=== PATIENT | female | born 1930 | race Asian ===

== ENCOUNTER 2017-12-11 09:30 | Inpatient (IN) | payer OTHER ==
--- NOTE | 2017-12-11 10:37 | PDOC ---
History of Present Illness - General Chief Complaint: Revisit,Radiology Variance Stated Complaint: abnormal U/S AND BLOOD WORK,SEND BY PMD Time Seen by Provider: 12/11/17 09:36 - History of Present Illness Initial Comments: 12/11/17 10:34 87 F with h/o HTN, HLD presenting to ED with several days of jaundice. Pt denies any pain, denies F/C. States that she noticed her eyes had become yellow. Pt was seen by Dr. Justice and had outpt labs drawn that showed an elevated Tbili. Pt subsequently had US and CT that demonstrated possible hepatic mass. No evidence of pancreatic mass or gallbladder pathology was noted. Pt states she otherwise feels well. No complaints at this time. Pt sent in by Dr. Justice for admission and MRCP. Past History - Past Medical History Allergies/Adverse Reactions: Allergies Allergy/AdvReac Type Severity Reaction Status Date / Time oxycodone [Oxycodone] Allergy Intermediate Itching Verified 12/11/17 09:40 hydromorphone HCl Allergy Verified 12/11/17 09:40 [From Dilaudid] HAIR DYE Allergy Uncoded 06/01/13 17:10 Anemia: No Asthma: No Cancer: No Cardiac Disorders: No CVA: No COPD: No CHF: No Dementia: No Diabetes: No GI Disorders: No Disorders: No HTN: Yes Hypercholesterolemia: Yes Liver Disease: No Seizures: No Thyroid Disease: No - Surgical History Abdominal Surgery: No Appendectomy: No Cardiac Surgery: No Cholecystectomy: No Lung Surgery: No Neurologic Surgery: No Orthopedic Surgery: No - Suicide/Smoking/Psychosocial Hx Smoking Status: Yes Smoking History: Former smoker Have you smoked in the past 12 months: No Number of Cigarettes Smoked Daily: 1 If you are a former smoker, when did you quit?: 1912 Information on smoking cessation initiated: No Hx Alcohol Use: No Drug/Substance Use Hx: No Substance Use Type: None Hx Substance Use Treatment: No Review of Systems - Review of Systems Comments:: 12/11/17 10:36 "GENERAL/CONSTITUTIONAL: No fever or chills. No weakness. HEAD, EYES, EARS, NOSE AND THROAT: No change in vision. No ear pain or discharge. No sore throat. CARDIOVASCULAR: No chest pain or shortness of breath. RESPIRATORY: No cough, wheezing, or hemoptysis. GASTROINTESTINAL: No nausea, vomiting, diarrhea or constipation. GENITOURINARY: No dysuria, frequency, or change in urination. MUSCULOSKELETAL: No joint or muscle swelling or pain. No neck or back pain. SKIN: + jaundice NEUROLOGIC: No headache, vertigo, loss of consciousness, or change in strength/ sensation. ENDOCRINE: No increased thirst. No abnormal weight change. HEMATOLOGIC/LYMPHATIC: No anemia, easy bleeding, or history of blood clots. ALLERGIC/IMMUNOLOGIC: No hives or skin allergy. " *Physical Exam - Vital Signs Last Vital Signs Temp Pulse Resp BP Pulse Ox 98.9 F 77 16 171/60 100 12/11/17 09:31 12/11/17 09:31 12/11/17 09:31 12/11/17 09:31 12/11/17 09:31 - Physical Exam Comments: 12/11/17 10:36 "GENERAL: Awake, alert, and fully oriented, in no acute distress HEAD: No signs of trauma EYES: PERRLA, EOMI, + scleral icterus ENT: Auricles normal inspection, hearing grossly normal, nares patent, oropharynx clear without exudates. Moist mucosa NECK: Nontender, no stepoffs, Normal ROM, supple, no lymphadenopathy, JVD, or masses LUNGS: Breath sounds equal, clear to auscultation bilaterally. No wheezes, and no crackles HEART: Regular rate and rhythm, normal S1 and S2, no murmurs, rubs or gallops ABDOMEN: Soft, nontender, normoactive bowel sounds. No guarding, no rebound. No masses EXTREMITIES: Normal range of motion, no edema. No clubbing or cyanosis. No cords, erythema, or tenderness NEUROLOGICAL: Cranial nerves II through XII intact. 5/5 strength and sensation in all extremities, Normal speech, normal gait, normal cerebellar function SKIN: +Jaundice, Warm, Dry, normal turgor, no rashes or lesions noted. " ED Treatment Course - LABORATORY CBC & Chemistry Diagram: 12/13/17 08:30 12/13/17 06:00 - RADIOLOGY Radiology Studies Ordered: Category Date Time Status ABDOMEN MRI WITH CONTRAST/MRCP [MRI] Stat MRI 12/11/17 10:21 Ordered Medical Decision Making - Medical Decision Making 12/11/17 10:37 87 F with painless jaundice, found to have elevated bilis. CT and US with ? mass in liver. No infectious symptoms or abdominal pain to suggest cholangitis. - Repeat labs - MRCP - GI consult - Admit 12/11/17 15:[address] Young GI advanced solutions architect, who recommends MRCP and giving vitamin K 2mg IM, does not believe pt will need transfer at this time for ERCP. Pt admitted to hospitalist *DC/Admit/Observation/Transfer Diagnosis at time of Disposition: Elevated bilirubin - Discharge Dispostion Condition at time of disposition: Fair Admit: Yes - Referrals - Patient Instructions - Post Discharge Activity - Attestations Physician Attestion: 12/11/17 12:16 I, Dr. Bi Finney MD, attest that this document has been prepared under my direction and personally reviewed by me in its entirety. I further attest, that it accurately reflects all work, treatment, procedures and medical decision -making performed by me.
[2017-12-11 10:44] LABS: BASO % 2.7 % (0-2.0); EOS % 0.8 % (0-4.5); HEMATOCRIT 33.8 % (32.4-45.2); HEMOGLOBIN 11.4 GM/dl (10.7-15.3); LYMPH % 19.8 % (8-40); MCH 31.7 pg (25.7-33.7); MCHC 33.9 g/dl (32.0-36.0); MEAN CELL VOLUME 93.6 fl (80-96); MEAN PLT VOLUME 8.6 fl (7.5-11.1); MONO % 6.9 % (3.8-10.2); NEUT % 69.8 % (42.8-82.8); PLATELET COUNT 454 K/MM3 (134-434); RBC 3.61 M/mm3 (3.60-5.2); RDW 16.6 % (11.6-15.6); WHITE BLOOD COUNT 7.6 K/mm3 (4.0-10.8)
[2017-12-11 11:00] LABS: ALBUMIN 2.9 g/dl (3.5-5.0); ALK PHOS 170 U/L (32-92); ANION GAP 9 (8-16); BILIRUBIN,TOTAL 7.5 mg/dl (0.2-1.0); BLOOD UREA NITROGEN 17 mg/dl (7-18); CALCIUM 9.4 mg/dl (8.4-10.2); CHLORIDE 104 mmol/L (98-107); CO2 20 mmol/L (22-28); GLUCOSE,RANDOM 100 mg/dl (74-106); SGOT/AST 58 U/L (10-42); SGPT/ALT 23 U/L (10-40); SODIUM 133 mmol/L (136-145); TOT PROT 8.3 g/dl (6.4-8.3)
--- NOTE | 2017-12-11 14:37 | HP ---
CHIEF COMPLAINT: jaundice, elevated LFT, PCP: Dr. Headley HISTORY OF PRESENT ILLNESS:This 87 yr old female with c/o jaundice with elevated LFT comes to the ER per her PCP Dr. Jutsice. She had been recently seen and started a work up for elevated LFT as an OP but no jaundice noted. Denies pain PAST MEDICAL HISTORY: HTN, HLD PAST SURGICAL HISTORY: Social History: Smoking:former Alcohol:denies Drugs: denies Family History: Allergies oxycodone [Oxycodone] Allergy (Intermediate, Verified 12/11/17 09:40) Itching ITCHY hydromorphone HCl [From Dilaudid] Allergy (Verified 12/11/17 09:40) HAIR DYE Allergy (Uncoded 06/01/13 17:10) ITCHING HOME MEDICATIONS: REVIEW OF SYSTEMS CONSTITUTIONAL: Absent: fever, chills, diaphoresis, generalized weakness, malaise, loss of appetite, weight change HEENT: Absent: rhinorrhea, nasal congestion, throat pain, throat swelling, difficulty swallowing, mouth swelling, ear pain, eye pain, + jaundice/yellowing visual changes CARDIOVASCULAR: Absent: chest pain, syncope, palpitations, irregular heart rate, lightheadedness , peripheral edema RESPIRATORY: Absent: cough, shortness of breath, dyspnea with exertion, orthopnea, wheezing, stridor, hemoptysis GASTROINTESTINAL: Absent: abdominal pain, abdominal distension, nausea, vomiting, diarrhea, constipation, melena, hematochezia GENITOURINARY: Absent: dysuria, frequency, urgency, hesitancy, hematuria, flank pain, genital pain MUSCULOSKELETAL: Absent: myalgia, arthralgia, joint swelling, back pain, neck pain SKIN: Absent: rash, itching, pallor HEMATOLOGIC/IMMUNOLOGIC: Absent: easy bleeding, easy bruising, lymphadenopathy, frequent infections ENDOCRINE: Absent: unexplained weight gain, unexplained weight loss, heat intolerance, cold intolerance NEUROLOGIC: Absent: headache, focal weakness or paresthesias, dizziness, unsteady gait, seizure, mental status changes, bladder or bowel incontinence PSYCHIATRIC: Absent: anxiety, depression, suicidal or homicidal ideation, hallucinations. PHYSICAL EXAMINATION Vital Signs - 24 hr 12/11/17 12/11/17 09:31 13:25 Temperature 98.9 F Pulse Rate 77 Pulse Rate [ 87 Apical] Respiratory 16 18 Rate Blood Pressure 171/60 Blood Pressure 177/74 [Arm] O2 Sat by Pulse 100 98 Oximetry (%) GENERAL: Awake, alert, and fully oriented, in no acute distress. HEAD: Normal with no signs of trauma. EYES: Pupils equal, round and reactive to light, extraocular movements intact, sclera anicteric, conjunctiva clear. No lid lag. EARS, NOSE, THROAT: Ears normal, nares patent, oropharynx clear without exudates. Moist mucous membranes. NECK: Normal range of motion, supple without lymphadenopathy, JVD, or masses. LUNGS: Breath sounds equal, clear to auscultation bilaterally. No wheezes, and no crackles. No accessory muscle use. HEART: Regular rate and rhythm, normal S1 and S2 without murmur, rub or gallop. ABDOMEN: Soft, nontender, not distended, normoactive bowel sounds, no guarding, no rebound, no masses. No hepatomegaly or splenomegaly. MUSCULOSKELETAL: Normal range of motion at all joints. No bony deformities or tenderness. No CVA tenderness. UPPER EXTREMITIES: 2+ pulses, warm, well-perfused. No cyanosis. No clubbing. No peripheral edema. LOWER EXTREMITIES: 2+ pulses, warm, well-perfused. No calf tenderness. No peripheral edema. NEUROLOGICAL: Cranial nerves II-XII intact. Normal speech. Normal gait. PSYCHIATRIC: Cooperative. Good eye contact. Appropriate mood and affect. SKIN: Warm, dry, normal turgor, no rashes or lesions noted, normal capillary refill. Laboratory Results - last 24 hr 12/11/17 12/11/17 12/11/17 10:20 10:20 10:20 WBC 7.6 RBC 3.61 Hgb 11.4 Hct 33.8 MCV 93.6 MCH 31.7 MCHC 33.9 RDW 16.6 H Plt Count 454 H MPV 8.6 Neutrophils % 69.8 Lymphocytes % 19.8 Monocytes % 6.9 Eosinophils % 0.8 Basophils % 2.7 H Sodium 133 L Potassium 5.0 Chloride 104 Carbon Dioxide 20 L Anion Gap 9 BUN 17 Creatinine 1.0 Creat Clearance w eGFR 52.69 Random Glucose 100 Calcium 9.4 Total Bilirubin 7.5 H AST 58 H ALT 23 D Alkaline Phosphatase 170 H Total Protein 8.3 Albumin 2.9 L Lipase 252 ASSESSMENT/PLAN: This 87 yr old female with elevated LFT and jaundice that is painless and developed acutely. she has a hx of HLD on statin but was taken off 3 months ago at her PCP office. LFT's returned to normal then returned elevated 3 months after without the use of a statin. She has a hx of HTN and compliant with medications. 1. Jaundice, elevated LFT -trend LFT -MRCP pending -consult pending with Dr. Young GI to see pt -consult with surgery pending -pt NPO at current time -IVF 2. HTN -metoprolol 50 QD per her home dose -monitor B/P 3. FEN -IVF -SCD in bed Dispo: Pt to be inpatient for admission. Problem List - Problem (1) Elevated bilirubin Assessment/Plan: - plan for MRCP -GI consult pending -NPO for now -IVF for hydration -repeat labs. Code(s): R17 - UNSPECIFIED JAUNDICE (2) Abnormal liver function test Code(s): R94.5 - ABNORMAL RESULTS OF LIVER FUNCTION STUDIES (3) Hypertension Code(s): I10 - ESSENTIAL (PRIMARY) HYPERTENSION Qualifiers: Hypertension type: essential hypertension Qualified Code(s): I10 - Essential (primary) hypertension Visit type - Emergency Visit Emergency Visit: Yes ED Registration Date: 12/11/17 Care time: The patient presented to the Emergency Department on the above date and was hospitalized for further evaluation of their emergent condition. - New Patient This patient is new to me today: Yes Date on this admission: 12/12/17 - Critical Care Critical Care patient: No Hospitalist Screening - Colonoscopy Questionnaire Colonoscopy Questionnaire: Colonoscopy Questionnaire - Patient: 50 - 75 years old and never had a screening colonoscopy: No History of colon or rectal polyps, or CA: No History of IBD, Crohn's disease or UC: No History of abdominal radiation therapy as a child: No - Relative: 1 with colon or rectal CA, or polyps at age 60 or younger: No Colon or rectal CA diagnosed at age 45 or younger: No Multiple relatives with colon or rectal CA: No - Outcome: Screening Result: Negative Screen
[2017-12-11] MEDS ORDERED: PHYTONADIONE 10 MG/1 ML AMP IM ONE (14:56)
[2017-12-11] MEDS ORDERED: PHYTONADIONE 10 MG/1 ML AMP ONE (15:02)
[2017-12-11] MEDS ORDERED: morphine CARPU-JECT 2 MG/1 ML DISP.SYRIN IVPUSH PRN (15:14)
[2017-12-11] MEDS: DEXTROSE 5%-0.45% SALINE 1,000 ML IV SCH (16:30)
[2017-12-11 16:51] VITALS: BMI 16.2
--- NOTE | 2017-12-11 18:03 | CONSULT ---
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 Justice, for painless jaundice. She has "not been feeling well" for the past 3 weeks. She has lost her appetite, even for her favorite foods during the same time. She with noticed turning yellow in the eyes a week ago, after a large meal prepared by her daughter. She does not report significant abdominal pain. She was found on screening labs have elevated LFTs and Tbili. denies weight loss. She had been recently seen and started a work up for elevated LFT as an outpatient but then there was no jaundice noted. we were asked to asses. - History Source History Provided By: Patient, Medical Record Limitations to Obtaining History: No Limitations - Past Medical History Cardio/Vascular: Yes: HTN ...: No - Alcohol/Substance Use Hx Alcohol Use: No - Smoking History Smoking history: Former smoker Have you smoked in the past 12 months: No Aproximately how many cigarettes per day: 1 If you are a former smoker, when did you quit?: 2013 Home Medications - Allergies Allergies/Adverse Reactions: Allergies Allergy/AdvReac Type Severity Reaction Status Date / Time oxycodone [Oxycodone] Allergy Intermediate Itching Verified 12/11/17 09:40 hydromorphone HCl Allergy Verified 12/11/17 09:40 [From Dilaudid] HAIR DYE Allergy Uncoded 06/01/13 17:10 Review of Systems - Review of Systems Constitutional: reports: Loss of Appetite, Weakness. denies: Chills, Fever, Unintentional Wgt. Loss Eyes: denies: Blurred Vision, Recent Change in Vision HENT: denies: Difficult Swallowing, Throat Pain Neck: denies: Lumps, Tenderness Cardiovascular: denies: Chest Pain, Palpitations Respiratory: denies: Cough, SOB Gastrointestinal: denies: Abdominal Pain, Bloating Genitourinary: reports: Other (Dark urine). denies: Discharge, Dysuria Breasts: reports: No Symptoms Reported. denies: Pain Musculoskeletal: denies: Muscle Cramps, Muscle Weakness Integumentary: reports: Change in Color (icteric slcera and skin) Neurological: denies: Change in LOC, Syncope, Tremors Endocrine: denies: Unexplained Weight Gain, Unexplained Weight Loss Hematology/Lymphatic: denies: Easily Bruised, Excessive Bleeding Psychiatric: denies: Anxiety, Depression Physical Exam Vital Signs: Vital Signs Temperature 98.3 F 12/11/17 16:36 Pulse Rate 70 12/11/17 16:36 Respiratory Rate 18 12/11/17 16:36 Blood Pressure 166/60 12/11/17 16:36 O2 Sat by Pulse Oximetry (%) 100 12/11/17 16:36 Vital Signs Period Temp Pulse Resp BP Sys/Jameson Pulse Ox Last 24 Hr 98.1 F-98.9 F 66-87 16-18 137-177/57-74 98-100 Constitutional: Yes: No Distress, Calm, Thin Eyes: Yes: Conjunctiva Clear, EOM Intact HENT: Yes: Atraumatic, Normocephalic Neck: Yes: Supple, Trachea Midline Cardiovascular: Yes: Regular Rate and Rhythm, S1, S2. No: Murmur Respiratory: Yes: Regular, CTA Bilaterally Gastrointestinal: Yes: Normal Bowel Sounds, Soft. No: Hyperactive Bowel Sounds , Palpable Mass, Tenderness, Tenderness, Epigastrium, Tenderness, Rebound ...Rectal Exam: Yes: Deferred Renal/: No: CVA Tenderness - Left, CVA Tenderness - Right Extremities: No: Cool, Cyanosis Edema: No Peripheral Pulses WNL: Yes Integumentary: Yes: Jaundice. No: Rash Neurological: Yes: Alert, Oriented Psychiatric: Yes: Alert, Oriented Labs: CBC, BMP 12/11/17 10:20 12/11/17 10:20 Imaging - Results MRI: Pending Problem List - Problems (1) Elevated bilirubin Assessment/Plan: 87yo female with new onset painless jaundice f/u MRI/ MRCP GI evaluation for ERCP and stent tumor markers If there is a malignant cause for obstruction, amenable to ressection, she should be transferred to a tertiary care facility Code(s): R17 - UNSPECIFIED JAUNDICE (2) Abnormal liver function test Code(s): R94.5 - ABNORMAL RESULTS OF LIVER FUNCTION STUDIES (3) Hypertension Code(s): I10 - ESSENTIAL (PRIMARY) HYPERTENSION Qualifiers: Hypertension type: essential hypertension Qualified Code(s): I10 - Essential (primary) hypertension (4) Jaundice of recent onset Code(s): R17 - UNSPECIFIED JAUNDICE
[2017-12-12 08:37] LABS: BASO % 0.6 % (0-2.0); EOS % 2.9 % (0-4.5); HEMOGLOBIN 10.4 GM/dl (10.7-15.3); LYMPH % 23.3 % (8-40); MCH 32.4 pg (25.7-33.7); MCHC 34.5 g/dl (32.0-36.0); MEAN CELL VOLUME 94.1 fl (80-96); MEAN PLT VOLUME 8.2 fl (7.5-11.1); NEUT % 66.2 % (42.8-82.8); PLATELET COUNT 371 K/MM3 (134-434); RBC 3.19 M/mm3 (3.60-5.2); RDW 16.9 % (11.6-15.6); WHITE BLOOD COUNT 6.7 K/mm3 (4.0-10.8)
[2017-12-12 08:44] LABS: PROTHROMBIN TIME (PATIENT) 11.2 SEC (10.2-13.0)
[2017-12-12 08:58] LABS: ALBUMIN 2.5 g/dl (3.5-5.0); ALK PHOS 145 U/L (32-92); AMYLASE 99 U/L (25-125); ANION GAP 7 (8-16); BLOOD UREA NITROGEN 16 mg/dl (7-18); CALCIUM 8.7 mg/dl (8.4-10.2); CHLORIDE 107 mmol/L (98-107); CO2 21 mmol/L (22-28); GLUCOSE,RANDOM 105 mg/dl (74-106); MAGNESIUM 1.7 mg/dL (1.8-2.4); PHOSPHOROUS 3.4 mg/dl (2.5-4.6); POTASSIUM 4.1 mmol/L (3.5-5.1); SGOT/AST 52 U/L (10-42); SGPT/ALT 25 U/L (10-40); SODIUM 135 mmol/L (136-145); TOT PROT 7.3 g/dl (6.4-8.3)
[2017-12-12 09:02] LABS: ALBUMIN 2.5 g/dl (3.5-5.0); BILIRUBIN,DIRECT 3.2 mg/dL (0.0-0.3); TOT PROT 7.3 g/dl (6.4-8.3)
[2017-12-12] MEDS ORDERED: METOPROLOL TARTRATE 50 MG TABLET (FP) PO ONE (09:57)
[2017-12-12 10:13] LABS: LIPASE 268 U/L (73-393); N-TERMINAL BNP 373.08 pg/ml (5-450)
--- NOTE | 2017-12-12 13:19 | PN ---
Physical Exam: SUBJECTIVE: Patient seen and examined OBJECTIVE: Vital Signs Period Temp Pulse Resp BP Sys/Jameson Pulse Ox Last 24 Hr 98.1 F-98.6 F 65-87 18-18 137-189/57-74 98-100 GENERAL: The patient is awake, alert, and fully oriented, in no acute distress. HEAD: Normal with no signs of trauma. EYES: PERRL, extraocular movements intact, sclera anicteric, conjunctiva clear. No ptosis. ENT: Ears normal, nares patent, oropharynx clear without exudates, moist mucous membranes. NECK: Trachea midline, full range of motion, supple. LUNGS: Breath sounds equal, clear to auscultation bilaterally, no wheezes, no crackles, no accessory muscle use. HEART: Regular rate and rhythm, S1, S2 without murmur, rub or gallop. ABDOMEN: Soft, nontender, nondistended, normoactive bowel sounds, no guarding, no rebound, no hepatosplenomegaly, no masses. EXTREMITIES: 2+ pulses, warm, well-perfused, no edema. NEUROLOGICAL: Cranial nerves II through XII grossly intact. Normal speech, gait not observed. PSYCH: Normal mood, normal affect. SKIN: Warm, dry, normal turgor, no rashes or lesions noted Laboratory Results - last 24 hr 12/12/17 12/12/17 12/12/17 08:10 08:10 08:10 WBC 6.7 RBC 3.19 L Hgb 10.4 L Hct 30.0 L MCV 94.1 MCH 32.4 MCHC 34.5 RDW 16.9 H Plt Count 371 MPV 8.2 Neutrophils % 66.2 Lymphocytes % 23.3 Monocytes % 7.0 Eosinophils % 2.9 Basophils % 0.6 PT with INR 11.2 INR 1.00 PTT (Actin FS) 30.0 Sodium 135 L Potassium 4.1 Chloride 107 Carbon Dioxide 21 L Anion Gap 7 L BUN 16 Creatinine 1.0 Creat Clearance w eGFR 52.69 Random Glucose 105 Lactic Acid Calcium 8.7 Phosphorus 3.4 Magnesium 1.7 L Total Bilirubin 6.0 H Direct Bilirubin AST 52 H ALT 25 Alkaline Phosphatase 145 H Troponin I Cancelled C-Reactive Protein B-Natriuretic Peptide 373.08 Total Protein 7.3 Albumin 2.5 L Total Amylase 99 Lipase 268 12/12/17 12/12/17 12/12/17 08:10 08:10 08:10 WBC RBC Hgb Hct MCV MCH MCHC RDW Plt Count MPV Neutrophils % Lymphocytes % Monocytes % Eosinophils % Basophils % PT with INR INR PTT (Actin FS) Sodium Potassium Chloride Carbon Dioxide Anion Gap BUN Creatinine Creat Clearance w eGFR Random Glucose Lactic Acid 1.4 Calcium Phosphorus Magnesium Total Bilirubin 6.0 H Direct Bilirubin 3.2 H D AST 50 H ALT 27 Alkaline Phosphatase 144 H Troponin I C-Reactive Protein < 0.3 B-Natriuretic Peptide Total Protein 7.3 Albumin 2.5 L Total Amylase Lipase 12/12/17 08:10 WBC RBC Hgb Hct MCV MCH MCHC RDW Plt Count MPV Neutrophils % Lymphocytes % Monocytes % Eosinophils % Basophils % PT with INR INR PTT (Actin FS) Sodium Potassium Chloride Carbon Dioxide Anion Gap BUN Creatinine Creat Clearance w eGFR Random Glucose Lactic Acid Calcium Phosphorus Magnesium Total Bilirubin Direct Bilirubin AST ALT Alkaline Phosphatase Troponin I < 0.03 C-Reactive Protein B-Natriuretic Peptide Total Protein Albumin Total Amylase Lipase Active Medications Generic Name Dose Route Start Last Admin Trade Name Freq PRN Reason Stop Dose Admin Dextrose/Sodium Chloride 1,000 mls @ 75 mls/hr 12/11/17 15:15 12/11/17 16:30 D5-1/2ns - IV 75 mls/hr ASDIR PAUL Administration Morphine Sulfate 0.5 mg 12/11/17 15:14 Morphine Injection - IVPUSH Q4H PRN PAIN LEVEL 1-5 ASSESSMENT/PLAN: This 87 yr old female with elevated LFT and jaundice that is painless and developed acutely. she has a hx of HLD on statin but was taken off 3 months ago at her PCP office. LFT's returned to normal then returned elevated 3 months after without the use of a statin. She has a hx of HTN and compliant with medications. 1. Jaundice, elevated LFT -trend LFT -MRCP completed but pending results -consult pending with Dr. Young GI to see pt -consult with surgery appreciated waiting on MRI results -pt NPO at current time -IVF 2. HTN -metoprolol 50 QD per her home dose -monitor B/P 3. FEN -IVF -SCD in bed Dispo: Pt to be inpatient for admission. Problem List - Problems (1) Elevated bilirubin Code(s): R17 - UNSPECIFIED JAUNDICE (2) Abnormal liver function test Code(s): R94.5 - ABNORMAL RESULTS OF LIVER FUNCTION STUDIES (3) Hypertension Code(s): I10 - ESSENTIAL (PRIMARY) HYPERTENSION Qualifiers: Hypertension type: essential hypertension Qualified Code(s): I10 - Essential (primary) hypertension Visit type - Emergency Visit Emergency Visit: Yes ED Registration Date: 12/11/17 Care time: The patient presented to the Emergency Department on the above date and was hospitalized for further evaluation of their emergent condition. - New Patient This patient is new to me today: Yes Date on this admission: 12/12/17 - Critical Care Critical Care patient: No - Discharge Referral Referred to [facility] No
[2017-12-12] MEDS: DEXTROSE 5%-0.45% SALINE 1,000 ML IV SCH (15:17)
--- NOTE | 2017-12-12 17:26 | CON.GI ---
Consult Consult Specialty:: GI Reason for Consultation:: painless jaundice - History of Present Illness History of Present Illness: An 87F with 3 weeks of painless jaundice and 20 lb weight loss. 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 liver panel showed cholestasis with bili 6 and mild hepatitis. Afebrile, non-toxic appearing, pain-free. Son and daughter at bedside. - History Source History Provided By: Patient, Family Member, Medical Record Limitations to Obtaining History: No Limitations - Past Medical History Cardio/Vascular: Yes: HTN ...: No - Alcohol/Substance Use Hx Alcohol Use: No - Smoking History Smoking history: Former smoker Have you smoked in the past 12 months: No Aproximately how many cigarettes per day: 1 If you are a former smoker, when did you quit?: 2012 Home Medications - Allergies Allergies/Adverse Reactions: Allergies Allergy/AdvReac Type Severity Reaction Status Date / Time oxycodone [Oxycodone] Allergy Intermediate Itching Verified 12/11/17 09:40 hydromorphone HCl Allergy Verified 12/11/17 09:40 [From Dilaudid] HAIR DYE Allergy Uncoded 06/01/13 17:10 Family Disease History - Family Disease History Family History: Unremarkable (non-contributory) Review of Systems Findings/Remarks: as per HPI, H&P Physical Exam-GI Vital Signs: Vital Signs Temperature 98.5 F 12/12/17 14:26 Pulse Rate 65 12/12/17 14:26 Respiratory Rate 17 12/12/17 14:26 Blood Pressure 151/48 12/12/17 14:26 O2 Sat by Pulse Oximetry (%) 97 12/12/17 14:26 Constitutional: Yes: No Distress, Calm, Cachectic, Thin Eyes: Yes: Sclera Icterus HENT: Yes: Atraumatic Neck: Yes: Supple Cardiovascular: No: Bradycardia, Tachycardia Respiratory: Yes: Regular Gastrointestinal Inspection: No: Ascites, Distention ...Auscultate: Yes: Normoactive Bowel Sounds ...Palpate: Yes: Soft. No: Firm/Rigid, Guarding, Mass, Splenomegaly, Tenderness , Tenderness, Epigastium, Tenderness, Rebound ...Percussion: No: Fluid Wave Edema: No Neurological: Yes: Alert, Oriented Labs: CBC, BMP 12/12/17 08:10 12/12/17 08:10 INR, PTT INR 1.00 (0.82-1.09) 12/12/17 08:10 Laboratory Tests 12/11/17 12/11/17 12/11/17 10:20 10:20 10:20 WBC 7.6 RBC 3.61 Hgb 11.4 Hct 33.8 MCV 93.6 MCH 31.7 MCHC 33.9 RDW 16.6 H Plt Count 454 H MPV 8.6 Neutrophils % 69.8 Lymphocytes % 19.8 Monocytes % 6.9 Eosinophils % 0.8 Basophils % 2.7 H PT with INR INR PTT (Actin FS) Sodium 133 L Potassium 5.0 Chloride 104 Carbon Dioxide 20 L Anion Gap 9 BUN 17 Creatinine 1.0 Creat Clearance w eGFR 52.69 Random Glucose 100 Lactic Acid Calcium 9.4 Phosphorus Magnesium Total Bilirubin 7.5 H Direct Bilirubin AST 58 H ALT 23 D Alkaline Phosphatase 170 H Troponin I C-Reactive Protein B-Natriuretic Peptide Total Protein 8.3 Albumin 2.9 L Total Amylase Lipase 252 Urine Color Urine Appearance Urine pH Ur Specific [place] Urine Protein Urine Glucose (UA) Urine Ketones Urine Blood Urine Nitrite Urine Bilirubin Urine Urobilinogen Ur Leukocyte Esterase 12/12/17 12/12/17 12/12/17 08:10 08:10 08:10 WBC 6.7 RBC 3.19 L Hgb 10.4 L Hct 30.0 L MCV 94.1 MCH 32.4 MCHC 34.5 RDW 16.9 H Plt Count 371 MPV 8.2 Neutrophils % 66.2 Lymphocytes % 23.3 Monocytes % 7.0 Eosinophils % 2.9 Basophils % 0.6 PT with INR 11.2 INR 1.00 PTT (Actin FS) 30.0 Sodium 135 L Potassium 4.1 Chloride 107 Carbon Dioxide 21 L Anion Gap 7 L BUN 16 Creatinine 1.0 Creat Clearance w eGFR 52.69 Random Glucose 105 Lactic Acid Calcium 8.7 Phosphorus 3.4 Magnesium 1.7 L Total Bilirubin 6.0 H Direct Bilirubin AST 52 H ALT 25 Alkaline Phosphatase 145 H Troponin I Cancelled C-Reactive Protein B-Natriuretic Peptide 373.08 Total Protein 7.3 Albumin 2.5 L Total Amylase 99 Lipase 268 Urine Color Urine Appearance Urine pH Ur Specific [place] Urine Protein Urine Glucose (UA) Urine Ketones Urine Blood Urine Nitrite Urine Bilirubin Urine Urobilinogen Ur Leukocyte Esterase 12/12/17 12/12/1718 08:10 08:10 08:10 WBC RBC Hgb Hct MCV MCH MCHC RDW Plt Count MPV Neutrophils % Lymphocytes % Monocytes % Eosinophils % Basophils % PT with INR INR PTT (Actin FS) Sodium Potassium Chloride Carbon Dioxide Anion Gap BUN Creatinine Creat Clearance w eGFR Random Glucose Lactic Acid 1.4 Calcium Phosphorus Magnesium Total Bilirubin 6.0 H Direct Bilirubin 3.2 H D AST 50 H ALT 27 Alkaline Phosphatase 144 H Troponin I C-Reactive Protein < 0.3 B-Natriuretic Peptide Total Protein 7.3 Albumin 2.5 L Total Amylase Lipase Urine Color Urine Appearance Urine pH Ur Specific [place] Urine Protein Urine Glucose (UA) Urine Ketones Urine Blood Urine Nitrite Urine Bilirubin Urine Urobilinogen Ur Leukocyte Esterase 12/12/17 12/12/17 08:10 17:30 WBC RBC Hgb Hct MCV MCH MCHC RDW Plt Count MPV Neutrophils % Lymphocytes % Monocytes % Eosinophils % Basophils % PT with INR INR PTT (Actin FS) Sodium Potassium Chloride Carbon Dioxide Anion Gap BUN Creatinine Creat Clearance w eGFR Random Glucose Lactic Acid Calcium Phosphorus Magnesium Total Bilirubin Direct Bilirubin AST ALT Alkaline Phosphatase Troponin I < 0.03 C-Reactive Protein B-Natriuretic Peptide Total Protein Albumin Total Amylase Lipase Urine Color Yellow Urine Appearance Clear Urine pH 6.0 Ur Specific [place] <= 1.005 Urine Protein Negative Urine Glucose (UA) Negative Urine Ketones Negative Urine Blood Negative Urine Nitrite Negative Urine Bilirubin 1+ H Urine Urobilinogen 4.0 e.u/dl H Ur Leukocyte Esterase Trace H Imaging - Results Cat Scan: Report Reviewed (12/10) Ultrasound: Report Reviewed (12/10) MRI: Report Reviewed (12/11) Problem List - Problems (1) Common bile duct (CBD) stricture Code(s): K83.1 - OBSTRUCTION OF BILE DUCT (2) Liver mass Code(s): R16.0 - HEPATOMEGALY, NOT ELSEWHERE CLASSIFIED (3) Abnormal liver function test Code(s): R94.5 - ABNORMAL RESULTS OF LIVER FUNCTION STUDIES (4) Elevated bilirubin Code(s): R17 - UNSPECIFIED JAUNDICE (5) Jaundice of recent onset Code(s): R17 - UNSPECIFIED JAUNDICE Assessment/Plan r/o cholangiocarcinoma. No signs of cholangitis at this time Needs ERCP with CBD brushings, stenting +/-EUS with possible FNA as well as hepato/biliary surgery consultation. Discussed with the patient, her son and daughter who were at bedside. Empiric Zosyn started. Close monitorign for cholangisit. Transfer to [facility] for the above work up initiated. The patient and family consented. Case discussed with the accepting MD - Dr. William Rivera.
[2017-12-12 17:41] LABS: URINE APPEARANCE Clear; URINE BILIRUBIN 1+ (NEGATIVE); URINE BLOOD Negative (NEGATIVE); URINE COLOR YELLOW; URINE GLUCOSE (UA) Negative (NEGATIVE); URINE KETONE Negative (NEGATIVE); URINE LEUK ESTERASE TRACE (NEGATIVE); URINE NITRITE Negative (NEGATIVE); URINE PROTEIN Negative (NEGATIVE); URINE UROBILINOGEN 4.0 E.U/dl (0.2-1.0)
[2017-12-12] MEDS ORDERED: PIPERACIL/TAZOB 3.375 GM 3.375 GM/50 ML PREMIX IVPB SCH (18:00)
[2017-12-12] MEDS ORDERED: PIPERACILLIN/TAZOB 3.375 GM 3.375 GM in DEXTROSE 5%-WATER - 50 ML IVPB SCH (18:00)
[2017-12-12] MEDS ORDERED: PIPERACILLIN/TAZOB 3.375 GM 50 ML IVPB SCH (18:15)
--- NOTE | 2017-12-12 18:15 | EKG ---
Test Reason : Blood Pressure : / mmHG Vent. Rate : 070 BPM Atrial Rate : 070 BPM P-R Int : 184 ms QRS Dur : 086 ms QT Int : 384 ms P-R-T Axes : 076 055 068 degrees QTc Int : 414 ms NORMAL SINUS RHYTHM NORMAL ECG NO PREVIOUS ECGS AVAILABLE Confirmed by MD MONROE, [place] ([id number]) on 12/12/2017 6:14:34 PM Referred By: MIGUEL URBAN Confirmed By:[place] CHILDRESS MD
[2017-12-12 21:20] LABS: EPI CELLS FEW /HPF; URINE BACTERIA MANY /hpf (NEGATIVE); URINE RBC 0-2 /hpf (0-3)
[2017-12-13] MEDS: PIPERACILLIN/TAZOB 3.375 GM 3.375 GM/50 ML BAG IVPB SCH ×2 (01:26→09:57)
[2017-12-13 09:18] LABS: ACTIVATED PTT 29.9 SECONDS (24.0-38.9)
[2017-12-13 09:23] LABS: PROTHROMBIN TIME (PATIENT) 11.2 SEC (10.2-13.0)
[2017-12-13] MEDS ORDERED: METOPROLOL TARTRATE 50 MG TABLET (FP) PO SCH (10:00)
[2017-12-13 10:10] LABS: BASO % 0.6 % (0-2.0); EOS % 1.8 % (0-4.5); HEMATOCRIT 32.4 % (32.4-45.2); HEMOGLOBIN 11.1 GM/dl (10.7-15.3); LYMPH % 14.4 % (8-40); MCH 32.1 pg (25.7-33.7); MCHC 34.2 g/dl (32.0-36.0); MONO % 4.8 % (3.8-10.2); NEUT % 78.4 % (42.8-82.8); PLATELET COUNT 367 K/MM3 (134-434); RBC 3.45 M/mm3 (3.60-5.2); RDW 16.4 % (11.6-15.6); WHITE BLOOD COUNT 7.5 K/mm3 (4.0-10.8)
[2017-12-13 10:15] LABS: GLUCOSE,RANDOM 146 mg/dl (74-106)
[2017-12-13 10:16] LABS: ALBUMIN 2.6 g/dl (3.5-5.0); ALK PHOS 142 U/L (32-92); ANION GAP 11 (8-16); BILIRUBIN,TOTAL 6.1 mg/dl (0.2-1.0); BLOOD UREA NITROGEN 12 mg/dl (7-18); CHLORIDE 105 mmol/L (98-107); CO2 19 mmol/L (22-28); CREATININE 1.1 mg/dl (0.6-1.3); SGOT/AST 58 U/L (10-42); SGPT/ALT 27 U/L (10-40); SODIUM 135 mmol/L (136-145); TOT PROT 7.8 g/dl (6.4-8.3)
[2017-12-13] MEDS ORDERED: DEXTROSE 5%-0.45% SALINE 1,000 ML IV SCH (14:11)
--- NOTE | 2017-12-13 14:12 | PN ---
Physical Exam: SUBJECTIVE: Patient seen and examined with family at bedside. Pt feels well has no complaints. BM normal, no fever chills abdominal pain OBJECTIVE: Vital Signs Period Temp Pulse Resp BP Sys/Jameson Pulse Ox Last 24 Hr 97.8 F-98.5 F 65-85 17-18 124-179/48-62 97-99 PE Neuro: alert, awake, cn 2-12intact HEENT: sclera interic Pulm: CTAB CV: s1 s2 rrr no mrg Abd: s nt nd + bs Ext: warm no le edema Skin: jaundice Laboratory Results - last 24 hr 12/12/17 12/13/17 12/13/17 17:30 06:00 08:30 WBC 7.5 RBC 3.45 L Hgb 11.1 Hct 32.4 MCV 94.0 MCH 32.1 MCHC 34.2 RDW 16.4 H Plt Count 367 MPV 9.0 Neutrophils % 78.4 Lymphocytes % 14.4 Monocytes % 4.8 Eosinophils % 1.8 Basophils % 0.6 PT with INR INR PTT (Actin FS) Sodium 135 L Potassium 4.0 Chloride 105 Carbon Dioxide 19 L Anion Gap 11 BUN 12 D Creatinine 1.1 Creat Clearance w eGFR 47.21 Random Glucose 146 H D Calcium 9.0 Total Bilirubin 6.1 H AST 58 H ALT 27 Alkaline Phosphatase 142 H Creatine Kinase Cancelled Troponin I Cancelled Total Protein 7.8 Albumin 2.6 L Urine Color Yellow Urine Appearance Clear Urine pH 6.0 Ur Specific [place] <= 1.005 Urine Protein Negative Urine Glucose (UA) Negative Urine Ketones Negative Urine Blood Negative Urine Nitrite Negative Urine Bilirubin 1+ H Urine Urobilinogen 4.0 e.u/dl H Ur Leukocyte Esterase Trace H Urine RBC 0-2 Urine WBC 10-15 Ur Epithelial Cells Few Urine Bacteria Many 12/13/17 08:30 WBC RBC Hgb Hct MCV MCH MCHC RDW Plt Count MPV Neutrophils % Lymphocytes % Monocytes % Eosinophils % Basophils % PT with INR 11.2 INR 1.00 PTT (Actin FS) 29.9 Sodium Potassium Chloride Carbon Dioxide Anion Gap BUN Creatinine Creat Clearance w eGFR Random Glucose Calcium Total Bilirubin AST ALT Alkaline Phosphatase Creatine Kinase Troponin I Total Protein Albumin Urine Color Urine Appearance Urine pH Ur Specific [place] Urine Protein Urine Glucose (UA) Urine Ketones Urine Blood Urine Nitrite Urine Bilirubin Urine Urobilinogen Ur Leukocyte Esterase Urine RBC Urine WBC Ur Epithelial Cells Urine Bacteria Active Medications Generic Name Dose Route Start Last Admin Trade Name Freq PRN Reason Stop Dose Admin Dextrose/Sodium Chloride 1,000 mls @ 75 mls/hr 12/11/17 15:15 12/12/17 15:17 D5-1/2ns - IV 75 mls/hr ASDIR PAUL Administration Metoprolol Tartrate 50 mg 12/13/17 10:00 12/13/17 09:55 Lopressor - PO 50 mg DAILY PAUL Administration Morphine Sulfate 0.5 mg 12/11/17 15:14 Morphine Injection - IVPUSH Q4H PRN PAIN LEVEL 1-5 Piperacillin/Tazobactam/Dextrose 3.375 gm 12/12/17 18:00 Zosyn 3.375gm Ivpb (Premix) IVPB Q8H-IV PAUL Assessment: 87 year old female with elevated LFT and jaundice that is painless and developed acutely. she has a hx of HLD on statin but was taken off 3 months ago at her PCP office. LFT's returned to normal then returned elevated 3 months after without the use of a statin. She has a hx of HTN and compliant with medications. Plan: 1. Jaundice, elevated LFT - r/o cholangiocarcinoma - Will need ERCP and CBD brushing. stenting +/- EUS with possible FNA as well as hepato/biliary surgery - D/w GI. Dr. William Rivera accepting physician at [facility] [place] - Will give ceftriaxone and flagyl now 2. HTN - Stable - Metoprolol 50mg daily Dispo: - Transfer to [facility] Visit type - Emergency Visit Emergency Visit: Yes ED Registration Date: 12/11/17 Care time: The patient presented to the Emergency Department on the above date and was hospitalized for further evaluation of their emergent condition. - New Patient This patient is new to me today: Yes Date on this admission: 12/13/17 - Critical Care Critical Care patient: No
[2017-12-13] MEDS ORDERED: CEFTRIAXONE 1 GM in DEXTROSE 5%-WATER - 50 ML IVPB SCH (14:30)
[2017-12-13 14:46] VITALS: BP 147/59; PULSE 61; TEMP 98.7
[2017-12-15 08:07] LABS: CARCINOEMBRYONIC ANTIGEN 2.4 ng/mL (0.0-4.7)
== END 2017-12-13 15:30 | disposition short-term general hospital (02) | DRG 441 ==
LOC: FER 09:30 → FM/S 14:38
PROVIDERS: ADMIT Internal Medicine; ATTEND Nurse Practitioner Family
DX: R17 Unspecified jaundice (principal); K83.1 Obstruction of bile duct; R64 Cachexia; Z68.1 Body mass index [BMI] 19.9 or less, adult; I10 Essential (primary) hypertension; E78.5 Hyperlipidemia, unspecified; R94.5 Abnormal results of liver function studies; Z87.891 Personal history of nicotine dependence; R16.0 Hepatomegaly, not elsewhere classified
CPT/HCPCS: 36415; 74177-TC; 74182-TC; 76705-TC; 80053; 80061; 80076; 81003; 81015; 82105; 82150; 82378; 83605; 83690; 83735; 83880; 84100; 84443; 84484; 84702; 85025; 85027; 85610; 85730; 86140; 86301; 86304; 87040; 93005; 99282-25; C1887